=== PATIENT | female | born 1965 | race Caucasian/White ===

== ENCOUNTER 2016-12-07 11:47 | Emergency (ER) | payer OTHER ==
[2016-12-07 12:09] VITALS: BP 141/86; PULSE 101; RESP 20; TEMP 98.4; O2SAT 94
--- NOTE | 2016-12-07 13:08 | UCPHY ---
H & P Time Seen by Provider: 12/07/16 13:03 Patient Type: New HPI/ROS: HPI: 51-year-old female presents to urgent care with chief concern sore throat , headache, myalgias. Symptoms onset suddenly yesterday upon waking. Denies fever, dysphagia, nasal congestion, cough, shortness of breath, chest pain, abdominal pain, nausea, vomiting, diarrhea, rash. Has used [id number] cold medicine with minimal relief. Tolerating p.o.. ROS:10 point review of systems is negative other than as stated in HPI Smoking Status: Never smoked Physical Exam: Vital signs stable, reviewed by me General: Awake, alert, calm, cooperative. No acute distress. Head: Normalocephalic. Atraumatic. EENT: PERRLA. EOMI. No pallor or injection. Anicteric. No nystagmus. No injection. TMs intact bilaterally with normal landmarks. No rhinnorhea, nasal passages clear. Oropharynx with minimal erythema, no exudates, or lesions. Tonsils 2+ bilaterally, no exudates. Neck: Supple, nontender. No lymphadenopathy. Full range of motion. No meningismus. Respiratory: Breathing unlabored. Breath sounds equal bilaterally and clear to auscultation. No adventitious sounds. CV: Chest nontender, atraumatic. Heart rate regular. No murmur, distal pulses 2+ bilaterally. Brisk cap refill all extremities. Neuro: Alert. Oriented x 3. Speech clear. Nonfocal cranial nerves throughout. Sensation intact all extremities. Skin: Skin warm, dry, intact. No rash. Skin turgor normal. Extremities: Full range of motion in all 4 extremities. Strength 5+ all extremities. Constitutional: Initial Vital Signs Temperature (C) 36.9 C 12/07/16 12:06 Heart Rate 101 H 12/07/16 12:06 Respiratory Rate 20 12/07/16 12:06 Blood Pressure 141/86 H 12/07/16 12:06 O2 Sat (%) 94 12/07/16 12:06 O2 Delivery Mode Room Air Allergies/Adverse Reactions: No Known Allergies Allergy (Verified 12/07/16 12:05) Home Medications: Medication Instructions Recorded Bcp 11/04/09 Medical Decision Making ED Course/Re-evaluation: Rapid strep negative Differential Diagnosis: Strep pharyngitis, viral pharyngitis, influenza, other viral syndrome - Data Points Laboratory Results: 12/07/16 12/07/16 Unknown 12:03 Group A Strep Screen NEGATIVE (NEGATIVE) Group A Strep DNA Pending Departure - Departure Disposition: Home, Routine, Self-Care Clinical Impression: Pharyngitis Qualifiers: Pharyngitis/tonsillitis etiology: unspecified etiology Qualifier Code: (J02.9) Acute pharyngitis, unspecified Condition: Good Instructions: Pharyngitis (ED) Additional Instructions: Plan: You have pharyngitis-a throat infection. This is likely caused by a virus. Your rapid strep test was negative. We did send a strep DNA test and will notify you of the results in 3 days if positive for strep. Drink plenty of fluids. You may use 600 mg of ibuprofen every 6 hours for fever, inflammation, or pain. Always take ibuprofen with food and stay well hydrated while taking. Do not exceed the maximum allowable dose in a 24 hour period which is 2400 mg. You may use 650mg of Tylenol every 8 hours. This may be staggered with the ibuprofen. Do not exceed the maximum dose in a 24 hour period which is 3 GM or 3000 mg. Cepacol lozenges or spray [id number] Followup urgently if you develop vomiting, stiff neck, difficulty swallowing, inability to keep down fluids. Otherwise followup with PCP within 3-5 days. Gargle with warm salt water three times daily. - PQRS PQRS Measurement: Not applicable
== END 2016-12-07 13:09 | disposition home or self-care (01) ==
LOC: CED 11:47
DX: J02.9 Acute pharyngitis, unspecified (principal)
CPT/HCPCS: 87880-PO; 99203-PO; G0463-PO

== ENCOUNTER → 2017-01-16 | Outpatient (CLI) | payer OTHER | LOC: BMCIMAGING 11:44 | PROVIDERS: ATTEND Psychiatry & Neurology Neurology | DX: H53.9 Unspecified visual disturbance (principal); R20.0 Anesthesia of skin ==

== ENCOUNTER → 2017-02-13 | Outpatient (CLI) | payer OTHER ==
[~2017-02-13] MED LIST: GADOBUTROL 10 ML VIAL IVP ONE
== END ==
LOC: FIMAGING 15:26
PROVIDERS: ATTEND Psychiatry & Neurology Neurology
DX: R20.2 Paresthesia of skin (principal); M50.321 Other cervical disc degeneration at C4-C5 level; M43.12 Spondylolisthesis, cervical region; M48.02 Spinal stenosis, cervical region
CPT/HCPCS: A9585